=== PATIENT | male | born 1955 | race Caucasian/White ===

== ENCOUNTER 2023-08-03 13:09 | Emergency (ER) | payer OTHER ==
[~2023-08-03] VITALS: Ht 180.3 cm; Wt 90.7 kg
[2023-08-03] MEDS ORDERED: FINASTERIDE5 MG PO (13:17)
[2023-08-03] MEDS ORDERED: TOPROL XL100 M1 PO (13:17)
[2023-08-03] MEDS ORDERED: LISINOPRIL5 MG PO (13:17)
[2023-08-03] MEDS ORDERED: HYDROCHLOROTHIA25 MG PO (13:17)
[2023-08-03] MEDS ORDERED: PRAVASTATIN SOD10 MG PO (13:18)
[2023-08-03 14:23] LABS: HEMATOCRIT 37.8 % (39.0-48.0); MEAN CELL VOLUME 93.3 fL (80.0-100.00); MEAN CORPUSCULAR HEMOGLOBIN 32.2 pg (27.00-32.0); MEAN CORPUSCULAR HGB CONC 34.5 g/dl (32.0-36.0); RED BLOOD COUNT 4.05 M/uL (4.00-6.00); RED CELL DISTRIBUTION WIDTH 13.6 % (11.5-14.5)
[2023-08-03 14:28] LABS: PLATELET COUNT 104 K/uL (150-450)
[2023-08-03 14:41] LABS: ALBUMIN 3.9 gm/dL (3.4-5.0); BILIRUBIN TOTAL 0.81 mg/dL (0.3-1.2); CALCIUM 8.7 mg/dL (8.5-10.1); CREATININE SERUM 0.64 mg/dL (0.70-1.30); GFR 124.74; GLOBULINA 3.4 G/DL (2.4-3.5); POTASSIUM 3.4 mEq/L (3.5-5.1); TOTAL PROTEIN 7.3 gm/dL (6.4-8.2)
[2023-08-03 14:53] LABS: PH,URINE 6.5 (5.0-8.0); URINE APPEARANCE Clear; URINE BILIRRUBIN Negative (NEGATIVE); URINE BLOOD Negative; URINE COLOR Yellow; URINE GLUCOSE Negative (NEGATIVE); URINE LEUKOCYTE Negative; URINE NITRATE Negative; URINE PROTEIN Negative (NEGATIVE)
[2023-08-03 14:56] LABS: URINE EPITHELIAL CELLS 2.6 uL (0.0-38.8)
[2023-08-03 15:00] LABS: URINE BACTERIA 1.2 uL (0.0-1933); URINE WBC 1.5 uL (0.0-23.2)
[2023-08-03] MEDS ORDERED: TAMS0.4C PO (16:03)
== END 2023-08-03 16:24 | disposition home or self-care (01) ==
LOC: ER 13:09
PROVIDERS: General Practice
DX: R10.84 Generalized abdominal pain (principal)
CPT/HCPCS: 36415; 74176; 96372; 99283; J1885